=== PATIENT | male | born 1990 | race Caucasian/White ===

== ENCOUNTER 2020-08-15 14:20 | Emergency (ER) | payer MEDICAID, SELFPAY ==
[~2020-08-15] VITALS: Ht 180.3 cm; Wt 110.2 kg
[2020-08-15 14:42] VITALS: Ht 180.3 cm; Wt 110.2 kg
[2020-08-15 16:20] LABS: BASOPHIL % 0.4 % (0-2); PLATELET COUNT 497 x10^3mcL (130-400); RED CELL DISTRIBUTION WIDTH 16.2 % (11.5-14.5)
[2020-08-15 16:34] LABS: CALCIUM 8.8 mg/dL (8.5-10.1); CARBON DIOXIDE 27.4 mmol/L (21-32); CHLORIDE SERUM 101 mmol/L (98-107); GFR1 > 60 mL/min; GLUCOSE SERUM 97 mg/dL (74-106); POTASSIUM SERUM 4.2 mmol/L (3.5-5.1); SODIUM SERUM 136 mmol/L (136-145)
[2020-08-15 16:38] LABS: ALKALINE PHOSPHATASE 99 U/L (46-116); ALT/SGPT 589 U/L (16-63); AST/SGOT 85 U/L (15-37); BILIRUBIN TOTAL 0.6 mg/dL (0.20-1.00); LIPASE 126 IU/L (73-393); TOTAL PROTEIN, SERUM 7.8 g/dL (6.4-8.2)
[2020-08-15 16:40] LABS: ALBUMIN 2.8 g/dL (3.4-5.0)
[2020-08-15 17:35] VITALS: BP 120/68
== END 2020-08-15 17:35 | disposition home or self-care (01) ==
LOC: ED 14:20
PROVIDERS: Emergency Medicine
DX: K75.9 Inflammatory liver disease, unspecified (principal)
CPT/HCPCS: J1885; J7030; Q9967